=== PATIENT | female | born 1965 | race Caucasian/White ===

== ENCOUNTER 2016-05-06 17:45 | Emergency (ER) | payer BC ==
--- NOTE | 2016-05-06 17:56 | PDOC ---
Rapid Medical Evaluation Chief Complaint: Nausea/Vomiting Time Seen by Provider: 05/06/16 17:50 Medical Evaluation: Allergies Allergy/AdvReac Type Severity Reaction Status Date / Time Penicillins Allergy Severe Difficulty Verified 05/06/16 17:50 Breathing 05/06/16 17:55 I have performed a brief in-person evaluation of this patient. The patient presents with a chief complaint of: epigastric pain, worse after eating, also associated with diaphoresis and nausea Pertinent physical exam findings: + mild epigastric tenderness I have ordered the following:cbc, cmp, ekg, troponin, ruq u/s The patient will proceed to the ED for further evaluation.
[2016-05-06 18:00] VITALS: BP 152/106; PULSE 74; TEMP 98.1; BMI 28.9
[2016-05-06 18:44] LABS: BASOPHIL 0.4 % (0-2.0); EOSINOPHIL 5.7 % (0-4.5); MCH 31.4 pg (25.7-33.7); MCHC 33.6 g/dl (32.0-36.0); MEAN CELL VOLUME 93.6 fl (80-96); MEAN PLT VOLUME 8.8 fl (7.5-11.1); NEUTROPHILS 77.4 % (42.8-82.8); PLATELET COUNT 246 K/MM3 (134-434); RDW 13.1 % (11.6-15.6); WHITE BLOOD COUNT 9.2 K/mm3 (4.0-10.0)
[2016-05-06 19:12] LABS: ALBUMIN 4.2 g/dl (3.4-5.0); ALK PHOS 120 U/L (45-117); ANION GAP 7 (8-16); BILIRUBIN,TOTAL 0.2 mg/dL (0.2-1.0); CALCIUM 9.5 mg/dL (8.5-10.1); CO2 31 mmol/L (21-32); CREATININE 0.8 mg/dL (0.55-1.02); GLUCOSE,RANDOM 114 mg/dL (74-106); SGOT/AST 16 U/L (15-37); SGPT/ALT 21 U/L (12-78); TOT PROT 7.3 g/dl (6.4-8.2)
[2016-05-06 19:14] LABS: TROPONIN I < 0.02 ng/ml (0.00-0.05)
--- NOTE | 2016-05-06 20:21 | PDOC ---
History of Present Illness - General Chief Complaint: Pain, Acute Stated Complaint: PCP SENT/STOMACH PAIN Time Seen by Provider: 05/06/16 17:50 History Source: Patient Exam Limitations: No Limitations - History of Present Illness Travel History: No Timing/Duration: reports: intermittent Quality: reports: mild Abdominal Pain Onset Location: reports: epigastric Pain Radiation: reports: no radiation Past History - Travel Traveled outside of the country in the last 30 days: No Close contact w/someone who was outside of country & ill: No - Past Medical History Allergies/Adverse Reactions: Allergies Allergy/AdvReac Type Severity Reaction Status Date / Time Penicillins Allergy Severe Difficulty Verified 05/06/16 17:50 Breathing Home Medications: Ambulatory Orders No Home Medications 10/29/11 Ibuprofen [Motrin] 600 mg PO Q6H PRN #0 tablet 11/04/11 Anemia: No Asthma: No Cancer: No Cardiac Disorders: No CVA: No COPD: No CHF: No Dementia: No Diabetes: No GI Disorders: No Disorders: Yes (uterine fibroid) HTN: No Hypercholesterolemia: No Liver Disease: No Seizures: No Thyroid Disease: No - Surgical History Abdominal Surgery: No Appendectomy: No Cardiac Surgery: No Cholecystectomy: No Lung Surgery: No Neurologic Surgery: No Orthopedic Surgery: No - Psycho/Social/Smoking Cessation Hx Anxiety: No Suicidal Ideation: No Smoking Status: No Smoking History: Former smoker Years of Tobacco Use: 25 Have you smoked in the past 12 months: No Number of Cigarettes Smoked Daily: 0 Information on smoking cessation initiated: No Hx Alcohol Use: Yes (SOCIALLY) Drug/Substance Use Hx: No Substance Use Type: Alcohol Hx Substance Use Treatment: No Abd/GI Specific PMHX - Complaint Specific PMHX Gall Bladder Disease: No Review of Systems - Review of Systems Able to Perform ROS?: Yes Comments:: 05/06/16 20:20 CONSTITUTIONAL: Absent: fever, chills, diaphoresis, generalized weakness, malaise, loss of appetite HEENT: Absent: rhinorrhea, nasal congestion, throat pain, throat swelling, difficulty swallowing, mouth swelling, ear pain, eye pain, visual Changes CARDIOVASCULAR: Absent: chest pain, loss of consciousness, palpitations, irregular heart rate, peripheral edema RESPIRATORY: Absent: cough, shortness of breath, dyspnea with exertion, orthopnea, wheezing, stridor, hemoptysis GASTROINTESTINAL: Epigastric pain Absent: abdominal distension, nausea, vomiting, diarrhea, constipation, melena , hematochezia GENITOURINARY: Absent: dysuria, frequency, urgency, hesitancy, hematuria, flank pain, genital pain MUSCULOSKELETAL: Absent: myalgia, arthralgia, joint swelling SKIN: Absent: rash, itching, pallor HEMATOLOGIC/IMMUNOLOGIC: Absent: easy bleeding, easy bruising, lymphadenopathy, frequent infections ENDOCRINE: Absent: unexplained weight gain, unexplained weight loss, heat intolerance, cold intolerance NEUROLOGIC: Absent: headache, focal weakness or paresthesias, dizziness, unsteady gait, seizure, mental status changes, bladder or bowel incontinence PSYCHIATRIC: Absent: anxiety, depression, suicidal or homicidal ideation, hallucinations. Is the patient limited [place] proficient: No *Physical Exam - Vital Signs Last Vital Signs Temp Pulse Resp BP Pulse Ox 98.1 F 74 19 152/106 98 05/06/16 17:51 05/06/16 17:51 05/06/16 17:51 05/06/16 17:51 05/06/16 17:51 - Physical Exam Comments: 05/06/16 20:21 GENERAL: Well developed, well nourished. Awake and alert. No acute distress. HEENT: Normocephalic, atraumatic. PERRLA, EOMI. No conjunctival pallor. Sclera are non- icteric. Moist mucous membranes. Oropharynx is clear. NECK: Supple. Full ROM. No JVD. Carotid pulses 2+ and symmetric, without bruits. No thyromegaly. No lymphadenopathy. CARDIOVASCULAR: Regular rate and rhythm. No murmurs, rubs, or gallops. Distal pulses are 2+ and symmetric. PULMONARY: No evidence of respiratory distress. Lungs clear to auscultation bilaterally. No wheezing, rales or rhonchi. ABDOMINAL: Soft. Non-tender. Non-distended. No rebound or guarding. No organomegaly. Normoactive bowel sounds. MUSCULOSKELETAL Normal range of motion at all joints. No bony deformities or tenderness. No CVA tenderness. EXTREMITIES: No cyanosis. No clubbing. No edema. No calf tenderness. SKIN: Warm and dry. Normal capillary refill. No rashes. No jaundice. NEUROLOGICAL: Alert, awake, appropriate. Cranial nerves 2-12 intact. No deficits to light touch and temperature in face, upper extremities and lower extremities. No motor deficits in the in face, upper extremities and lower extremities. Normoreflexic in the upper and lower extremities. Normal speech. Toes are down- going bilaterally. Gait is normal without ataxia. PSYCHIATRIC: Cooperative. Good eye contact. Appropriate mood and affect. ED Treatment Course - LABORATORY CBC & Chemistry Diagram: 05/06/16 18:17 03 18:17 - ADDITIONAL ORDERS Additional order review: Laboratory Results 05/06/16 18:17 Sodium 141 Potassium 4.3 Chloride 103 Carbon Dioxide 31 Anion Gap 7 L BUN 18 D Creatinine 0.8 Creat Clearance w eGFR > 60 Random Glucose 114 H D Calcium 9.5 Total Bilirubin 0.2 AST 16 D ALT 21 Alkaline Phosphatase 120 H D Creatine Kinase 66 Troponin I < 0.02 Total Protein 7.3 Albumin 4.2 05/06/16 18:17 RBC 4.17 MCV 93.6 MCHC 33.6 RDW 13.1 D MPV 8.8 D Neutrophils % 77.4 Lymphocytes % 12.6 D Monocytes % 3.9 Eosinophils % 5.7 H D Basophils % 0.4 Progress Note - Progress Note Progress Note: 50-year-old female presents to the emergency department with no abdominal pains today but was complaining of epigastric discomfort yesterday. Pain is described as 10/10 nonradiating intermittent discomfort that lasts for ~30 minutes after eating for the past 10 days but pain free today. The pain is alleviated on its own after one hour. Patient denies nausea/vomiting, fever/chills, chest pain, shortness of breath, flank pains, urinary symptoms: Frequency/urgency/hesitancy , hematuria. Patient was seen by her PMD this evening and was sent to the emergency department. PMD [phone] Dr. Mcdaniel 2023hrs: I spoke to the patient's PMD (Dr. Mcdaniel) and informed him that the ultrasound shows no gallstones but did show hepatomegaly. Negative cardiac enzymes and the patient is pain-free while in the emergency department. Patient' s PMD requests that I advise the patient to take Prilosec 20 mg twice a day and Maalox and follow back up with him in his office. *DC/Admit/Observation/Transfer Diagnosis at time of Disposition: Epigastric pain - Discharge Dispostion Disposition: HOME Condition at time of disposition: Stable Admit: No - Referrals Referrals: Evgeny Mcdaniel MD [Primary Care Provider] - Isaac Chaves MD [Staff Physician] - - Patient Instructions Printed Discharge Instructions: DI for Epigastric Pain Additional Instructions: As per your doctor, Dr. Mcdaniel, urinary to take Prilosec 20 mg twice a day and Maalox daily. Follow back up with your physician. As per our conversation, ultrasound does not show any gallstones but it does show an enlarged liver. He should follow-up with a biofuels engineering manager. I have listed a biofuels engineering manager on your discharge sheet.
[2016-05-06] MEDS ORDERED: RANITIDINE HCL 150 MG TABLET (FP) PO ONE (20:22)
[2016-05-06] MEDS ORDERED: MAG HYDROX/AL HYDROX/SIMETH 30 ML UNIT-DOSE CUP PO ONE (20:22)
[2016-05-06] MEDS ORDERED: MAG HYDROX/AL HYDROX/SIMETH 30 ML UNIT-DOSE CUP ONE (20:25)
[2016-05-06] MEDS ORDERED: RANITIDINE HCL 150 MG TABLET (FP) ONE ×2 (20:25→20:28)
--- NOTE | 2016-05-06 20:36 | PDOC ---
*Physical Exam - Vital Signs Last Vital Signs Temp Pulse Resp BP Pulse Ox 98.1 F 74 19 152/106 98 05/06/16 17:51 05/06/16 17:51 05/06/16 17:51 05/06/16 17:51 05/06/16 17:51 ED Treatment Course - LABORATORY CBC & Chemistry Diagram: 05/06/16 18:17 05/06/16 18:17 - ADDITIONAL ORDERS Additional order review: Laboratory Results 05/06/16 18:17 Sodium 141 Potassium 4.3 Chloride 103 Carbon Dioxide 31 Anion Gap 7 L BUN 18 D Creatinine 0.8 Creat Clearance w eGFR > 60 Random Glucose 114 H D Calcium 9.5 Total Bilirubin 0.2 AST 16 D ALT 21 Alkaline Phosphatase 120 H D Creatine Kinase 66 Troponin I < 0.02 Total Protein 7.3 Albumin 4.2 05/06/16 18:17 RBC 4.17 MCV 93.6 MCHC 33.6 RDW 13.1 D MPV 8.8 D Neutrophils % 77.4 Lymphocytes % 12.6 D Monocytes % 3.9 Eosinophils % 5.7 H D Basophils % 0.4 - Medications Given in the ED: ED Medications Discontinued Medications Generic Name Dose Route Start Last Admin Trade Name Freq PRN Reason Stop Dose Admin Al Hydroxide/Mg Hydroxide 30 ml 05/06/16 20:22 05/06/16 20:29 Mylanta Oral Suspension - PO 05/06/16 20:23 30 ml ONCE ONE Administration Ranitidine HCl 300 mg 05/06/16 20:22 05/06/16 20:30 Zantac - PO 05/06/16 20:23 300 mg ONCE ONE Administration Medical Decision Making - Medical Decision Making 05/06/16 20:36 Pt seen by the Advanced Practice Provider under my direct supervision Ancillary studies reviewed I agree with plan as outlined by the Advanced Practice Provider ANDREAS Winter *DC/Admit/Observation/Transfer Diagnosis at time of Disposition: Epigastric abdominal pain - Discharge Dispostion Disposition: HOME Condition at time of disposition: Stable - Referrals Referrals: Evgeny Mcdaniel MD [Primary Care Provider] - Isaac Chaves MD [Staff Physician] - - Patient Instructions Printed Discharge Instructions: DI for Epigastric Pain Additional Instructions: As per your doctor, Dr. Mcdaniel, urinary to take Prilosec 20 mg twice a day and Maalox daily. Follow back up with your physician. As per our conversation, ultrasound does not show any gallstones but it does show an enlarged liver. He should follow-up with a inserter promotional item. I have listed a inserter promotional item on your discharge sheet. - Post Discharge Activity
--- NOTE | 2016-05-07 09:57 | EKG ---
Test Reason : Blood Pressure : / mmHG Vent. Rate : 072 BPM Atrial Rate : 072 BPM P-R Int : 184 ms QRS Dur : 090 ms QT Int : 414 ms P-R-T Axes : 055 063 048 degrees QTc Int : 453 ms NORMAL SINUS RHYTHM NORMAL ECG NO PREVIOUS ECGS AVAILABLE Confirmed by ORA COVINGTON MD ([id number]) on 05/07/2016 9:57:40 AM Referred By: Confirmed By:ORA COVINGTON MD
== END 2016-05-06 20:54 | disposition home or self-care (01) ==
LOC: JER 17:45
DX: R10.13 Epigastric pain (principal)
CPT/HCPCS: 36415; 76705-TC; 80053; 82550; 84484; 85025; 93005; 93010; 99281-25

== ENCOUNTER 2017-01-27 22:18 | Emergency (ER) | payer BC ==
[2017-01-27 22:34] VITALS: TEMP 97.5; BMI 29.2
[2017-01-28] MEDS ORDERED: ASPIRIN 81 MG CHEWABLE TABLETS PO ONE (00:34)
--- NOTE | 2017-01-28 00:35 | PDOC ---
History of Present Illness - General Chief Complaint: Chest Pain Stated Complaint: CHEST PAIN Time Seen by Provider: 01/28/17 00:22 History Source: Patient - History of Present Illness Initial Comments: 01/28/17 03:21 51-year-old female complaining of left-sided chest pain that is worse with breathing for 1 day. Patient reports unable to lay flat since chest pain started. Denies recent travel, OCP use leg swelling Past History - Past Medical History Allergies/Adverse Reactions: Allergies Allergy/AdvReac Type Severity Reaction Status Date / Time Penicillins Allergy Severe Difficulty Verified 01/27/17 23:35 Breathing Home Medications: Ambulatory Orders No Home Medications 10/29/11 Anemia: No Asthma: No Cancer: No Cardiac Disorders: No CVA: No COPD: No CHF: No Dementia: No Diabetes: No GI Disorders: No Disorders: Yes (uterine fibroid) HTN: No Hypercholesterolemia: No Liver Disease: No Seizures: No Thyroid Disease: No - Surgical History Abdominal Surgery: No Appendectomy: No Cardiac Surgery: No Cholecystectomy: No Lung Surgery: No Neurologic Surgery: No Orthopedic Surgery: No - Suicide/Smoking/Psychosocial Hx Smoking Status: No Smoking History: Former smoker Years of Tobacco Use: 25 Have you smoked in the past 12 months: No Number of Cigarettes Smoked Daily: 0 If you are a former smoker, when did you quit?: @2006 Information on smoking cessation initiated: No Hx Alcohol Use: No Drug/Substance Use Hx: No Substance Use Type: Alcohol Hx Substance Use Treatment: No Cardiac Specific PMH - Complaint Specific PMHX Pacemaker: No Review of Systems - Review of Systems Able to Perform ROS?: Yes Is the patient limited [place] proficient: No Constitutional: No: Symptoms Reported, See HPI, Chills, Diaphoresis, Fever, Loss of Appetite, Malaise, Night Sweats, Weakness, Weight Stable, Unintentional Wgt. Loss, Unexplained wgt Loss, Other Respiratory: No: Symptoms reported, See HPI, Cough, Orthopnea, Shortness of Breath, SOB with Exertion, SOB at Rest, Stridor, Wheezing, Productive cough, Hemoptysis, Other Cardiac (ROS): Yes: Chest Pain (pleurisy). No: Symptoms Reported, See HPI, Edema, Irregular Heart Rate, Lightheadedness, Palpitations, Syncope, Chest Tightness, Other *Physical Exam - Vital Signs Last Vital Signs Temp Pulse Resp BP Pulse Ox 97.5 F L 75 17 157/105 99 01/27/17 22:31 01/27/17 22:31 01/27/17 22:31 01/27/17 22:31 01/27/17 22:31 - Physical Exam General Appearance: Yes: Appropriately Dressed Respiratory/Chest: positive: Lungs Clear, Normal Breath Sounds Cardiovascular: positive: Regular Rhythm, Regular Rate Gastrointestinal/Abdominal: positive: Normal Bowel Sounds, Soft Extremity: positive: Normal Capillary Refill Integumentary: positive: Dry, Warm Neurologic: positive: Alert, Normal Mood/Affect ED Treatment Course - LABORATORY CBC & Chemistry Diagram: 01/28/17 00:45 01/28/17 00:45 - ADDITIONAL ORDERS Additional order review: Laboratory Results 01/28/17 01/28/17 01/28/17 03:37 00:45 00:45 PT with INR INR D-Dimer Sodium 139 Potassium 3.9 Chloride 106 Carbon Dioxide 26 Anion Gap 7 L BUN 14 D Creatinine 0.7 Creat Clearance w eGFR > 60 Random Glucose 105 Calcium 8.6 Magnesium 2.2 Total Bilirubin 0.2 AST 15 ALT 25 Alkaline Phosphatase 124 H Creatine Kinase 100 89 Troponin I < 0.02 < 0.02 Total Protein 7.4 Albumin 3.7 Serum , Qual Negative 01/28/17 00:45 PT with INR 9.40 L INR 0.83 L D-Dimer < 200 Sodium Potassium Chloride Carbon Dioxide Anion Gap BUN Creatinine Creat Clearance w eGFR Random Glucose Calcium Magnesium Total Bilirubin AST ALT Alkaline Phosphatase Creatine Kinase Troponin I Total Protein Albumin Serum , Qual 01/28/17 00:45 RBC 4.39 MCV 92.7 MCHC 33.6 RDW 13.1 MPV 9.0 Neutrophils % 55.9 D Lymphocytes % 34.1 D Monocytes % 6.9 Eosinophils % 2.4 Basophils % 0.7 - RADIOLOGY Radiology Studies Ordered: Category Date Time Status CHEST CTA [CT] Stat CT Scan 01/28/17 02:41 Taken CHEST PA & LAT [RAD] Stat Radiology 01/28/17 00:34 Taken - Medications Given in the ED: ED Medications Discontinued Medications Generic Name Dose Route Start Last Admin Trade Name Freq PRN Reason Stop Dose Admin Albuterol Sulfate 1 amp 01/28/17 02:22 01/28/17 03:12 Ventolin 0.083% Nebulizer Soln - NEB 01/28/17 02:23 1 amp ONCE ONE Administration Aspirin 162 mg 01/28/17 00:34 01/28/17 03:11 Asa - PO 01/28/17 00:35 162 mg ONCE ONE Administration Progress Note - Progress Note Progress Note: A: pleuritic chest pain CBC CMP chest xray d-dimer<200 cardiac enzymes patient still symptomatic. will CTA to r/o acute cause CTA chest Medical Decision Making - Medical Decision Making 01/28/17 04:17 CTA: negative for pulmonary embolus, lungs are clear no acute disease *DC/Admit/Observation/Transfer Diagnosis at time of Disposition: Pleuritic chest pain - Discharge Dispostion Disposition: HOME - Referrals Referrals: Evgeny Mcdaniel MD [Primary Care Provider] - - Patient Instructions Printed Discharge Instructions: DI for Chest Pain Additional Instructions: follow up with your doctor as soon as possible. return to the ER if symptoms worsen. - Post Discharge Activity
[2017-01-28 00:57] LABS: BASOPHIL 0.7 % (0-2.0); EOSINOPHIL 2.4 % (0-4.5); MCH 31.2 pg (25.7-33.7); MCHC 33.6 g/dl (32.0-36.0); MEAN CELL VOLUME 92.7 fl (80-96); NEUTROPHILS 55.9 % (42.8-82.8); PLATELET COUNT 196 K/MM3 (134-434); RDW 13.1 % (11.6-15.6)
[2017-01-28 01:25] LABS: ALBUMIN 3.7 g/dl (3.4-5.0); ANION GAP 7 (8-16); CALCIUM 8.6 mg/dL (8.5-10.1); CO2 26 mmol/L (21-32); CPK 89 IU/L (26-192); CREATININE 0.7 mg/dL (0.55-1.02); GLUCOSE,RANDOM 105 mg/dL (74-106); MAGNESIUM 2.2 mg/dL (1.8-2.4); SGOT/AST 15 U/L (15-37); SGPT/ALT 25 U/L (12-78); TOT PROT 7.4 g/dl (6.4-8.2)
[2017-01-28 01:29] LABS: ALK PHOS 124 U/L (45-117); BILIRUBIN,TOTAL 0.2 mg/dL (0.2-1.0); TROPONIN I < 0.02 ng/ml (0.00-0.05)
[2017-01-28 01:40] LABS: INR 0.83 (0.82-1.09)
[2017-01-28 01:43] LABS: D-DIMER < 200 ng/ml (<200-235)
--- NOTE | 2017-01-28 02:00 | PDOC ---
*Physical Exam - Vital Signs Last Vital Signs Temp Pulse Resp BP Pulse Ox 97.5 F L 75 17 157/105 99 01/27/17 22:31 01/27/17 22:31 01/27/17 22:31 01/27/17 22:31 01/27/17 22:31 ED Treatment Course - LABORATORY CBC & Chemistry Diagram: 01/28/17 00:45 01/28/17 00:45 - ADDITIONAL ORDERS Additional order review: Laboratory Results 01/28/17 01/28/17 01/28/17 00:45 00:45 00:45 PT with INR 9.40 L INR 0.83 L D-Dimer < 200 Sodium 139 Potassium 3.9 Chloride 106 Carbon Dioxide 26 Anion Gap 7 L BUN 14 D Creatinine 0.7 Creat Clearance w eGFR > 60 Random Glucose 105 Calcium 8.6 Magnesium 2.2 Total Bilirubin 0.2 AST 15 ALT 25 Alkaline Phosphatase 124 H Creatine Kinase 89 Troponin I < 0.02 Total Protein 7.4 Albumin 3.7 Serum , Qual Negative 01/28/17 00:45 RBC 4.39 MCV 92.7 MCHC 33.6 RDW 13.1 MPV 9.0 Neutrophils % 55.9 D Lymphocytes % 34.1 D Monocytes % 6.9 Eosinophils % 2.4 Basophils % 0.7 Medical Decision Making - Medical Decision Making 01/28/17 02:00 agree with care from HENNA allison *DC/Admit/Observation/Transfer - Referrals Referrals: Evgeny Mcdaniel MD [Primary Care Provider] - - Patient Instructions - Post Discharge Activity
[2017-01-28] MEDS ORDERED: ALBUTEROL SO4 0.083% IH SOL 2.5 MG/3 ML VIAL.NEB. NEB ONE ×2 (02:22→03:07)
[2017-01-28] MEDS ORDERED: ASPIRIN 81 MG CHEWABLE TABLETS ONE (03:07)
[2017-01-28 04:12] LABS: TROPONIN I < 0.02 ng/ml (0.00-0.05)
[2017-01-28 04:14] LABS: CPK 100 IU/L (26-192)
[2017-01-28 04:28] VITALS: BP 143/91; PULSE 70
--- NOTE | 2017-01-28 10:04 | EKG ---
Test Reason : Blood Pressure : / mmHG Vent. Rate : 071 BPM Atrial Rate : 071 BPM P-R Int : 166 ms QRS Dur : 090 ms QT Int : 408 ms P-R-T Axes : 041 054 049 degrees QTc Int : 443 ms NORMAL SINUS RHYTHM NORMAL ECG WHEN COMPARED WITH ECG OF 06-MAY-2016 19:59, NO SIGNIFICANT CHANGE WAS FOUND Confirmed by ORA COVINGTON MD ([id number]) on 01/28/2017 10:04:16 AM Referred By: Confirmed By:ORA COVINGTON MD
== END 2017-01-28 04:36 | disposition home or self-care (01) ==
LOC: JER 22:18
PROC: 3E0F7GC Introduction of Other Therapeutic Substance into Respiratory Tract, Via Natural or Artificial Opening (ICD-10-PCS; principal; 2017-01-27)
DX: R07.81 Pleurodynia (principal); Z87.891 Personal history of nicotine dependence
CPT/HCPCS: 36415; 71020-TC; 71275-TC; 80053; 82550; 83735; 84484; 84703; 85025; 85379; 85610; 93005; 93010; 99284-25

== ENCOUNTER 2018-09-27 04:49 | Day surgery (SDC) | payer BC ==
[2018-09-25 13:53] VITALS: BMI 31.6
[2018-09-27] MEDS ORDERED: MIDAZOLAM HCL 2 MG/2 ML SINGLE DOSE VIAL ONE (07:18)
[2018-09-27] MEDS ORDERED: PROPOFOL 20 ML ONE ×2 (07:19→08:10)
[2018-09-27] MEDS ORDERED: KETOROLAC TROMETHAMINE 30 MG/1 ML VIAL ONE (07:23)
[2018-09-27] MEDS ORDERED: SUCCINYLCHOLINE CHLORIDE 200 MG/10 ML SYRINGE ONE (07:24)
[2018-09-27] MEDS ORDERED: BUPIVACAINE HCL/PF 0.5% (5MG/ML) 10 ML VIAL ONE (07:26)
[2018-09-27] MEDS ORDERED: LIDOCAINE HCL 1% EPINEPHRINE 1:200,000 30 ML VIAL (PF) ONE (07:36)
[2018-09-27] MEDS ORDERED: ONDANSETRON 4 MG/2 ML VIAL IVPUSH PRN (07:51)
[2018-09-27] MEDS ORDERED: oxyCODONE HCL 5 MG TABLET PO PRN ×2 (07:51)
--- NOTE | 2018-09-27 07:57 | HP ---
[facility] - Chief Complaint Chief Complaint: LEFT KNEE PAIN History Source: Patient - Past Medical History Allergies/Adverse Reactions: Allergies Allergy/AdvReac Type Severity Reaction Status Date / Time Penicillins Allergy Severe Difficulty Verified 09/27/18 06:40 Breathing ...LMP: 09/13/11 - Current Medications Current Medications: Home Medications Medication Instructions Recorded Tylenol Muscle Ache & Pain 1 tab PO PRN PRN 09/25/18 [facility] Physical Exam - Physical Examination Vital Signs: Vital Signs Period Temp Pulse Resp BP Sys/Bear Pulse Ox Last 24 Hr 98.2 F 70 16 143/83 99 Extremities: Other (+ LEFT LATERAL JOINT TENDERNESS) [facility] Impression/Plan - Impression/Plan Impression: INTERNAL DERANGEMENT LEFT KNEE Operative Procedure: ARTHROSCOIPY LEFT KNEE Date to be Performed: 09/27/18
[2018-09-27] MEDS ORDERED: LACTATED RINGERS SOLUTION 1,000 ML IV SCH (08:00)
[2018-09-27] MEDS ORDERED: ACETAMINOPHEN 1000 MG/100 ML VIAL (NON FORMULARY) IVPB ONE (08:54)
--- NOTE | 2018-09-27 08:58 | OP ---
Operative Note - Note: Operative Date: 09/27/18 Pre-Operative Diagnosis: INTERNAL DERANGEMENT LEFT KNEE Operation: ARTHROSCOPY LEFT KNEE WITH PARTIAL LATERAL MENISCECTOMY Post-Operative Diagnosis: Same as Pre-op Surgeon: Kalyan Gan Adjunct Philosophy Faculty: Mark Fernandez Anesthesia: General Operative Report Dictated: Yes
[2018-09-27] MEDS ORDERED: ACETAMINOPHEN INJECTION 100 ML IVPB ONE (09:05)
--- NOTE | 2018-09-27 10:25 | OP ---
DATE OF OPERATION: 09/27/2018 PREOPERATIVE DIAGNOSIS: Internal derangement, left knee. POSTOPERATIVE DIAGNOSIS: Internal derangement, left knee. PROCEDURE: Arthroscopy, left knee, partial lateral meniscectomy. SURGICAL ATTENDING: Kalyan Gan MD GLOVE CUFFER: Mark Fernandez MD ANESTHESIA: General with LMA. CLOSURE: 4-0 nylon. COMPLICATIONS: None. CONDITION: To recovery room in stable condition. DESCRIPTION OF OPERATIVE PROCEDURE: Patient was taken to the operating room on September 27, 2018. General anesthesia with LMA was administered by the anesthesiologist. The left lower extremity was prepped and draped in the usual sterile fashion. The medial and lateral infrapatellar portal sites were infiltrated with 1% Xylocaine with epinephrine. Both portals were then made with a 15 blade followed by blunt trocar. The trocar was placed in the lateral infrapatellar portal and up the suprapatellar pouch. The knee was then inflated with cocktail, 10 mL of 1% Xylocaine, 10 mL of 0.5% Marcaine, and 20 mL for arthroscopic saline. After allowing the anesthetic to work in the knee, the procedure was performed. The medial and lateral gutters were visualized to be intact. The undersurface of the patella and trochlea were visualized to be intact. With valgus stress on the knee, the medial compartment was entered. The medial meniscus was visualized and probed and found to be intact. The medial femoral condyle was run and found to be intact, as was the medial tibial plateau. At 90 degrees of the ACL was visualized and probed and found to be intact. In the figure 4 position, lateral compartment was entered. Lateral meniscus was found to have a complex flap tear of its mid portion. This was debrided back to smooth stable meniscal tissues both anterior and posterior using an arthroscopic shaver and biters. The lateral femoral condyle was run and found to be basically intact, as was the lateral tibial plateau. The knee was irrigated with copious amounts of irrigation. The portals were closed using 4-0 nylon. Prior to puling the trocar, 20 mL of 0.5% Marcaine was infused using postoperative analgesia, and sterile pressure dressing was placed over the knee. Patient awakened from anesthesia and transferred to recovery in stable condition. No complications. Estimated blood loss negligible. Angel HERNANDEZ/[id number]
[2018-09-27 12:42] VITALS: BP 130/80; PULSE 68; TEMP 98
--- NOTE | 2018-09-28 16:29 | PATH ---
Surgical Pathology Report Patient Name: LUCI BOB [facility]. Rec. #: [id number] /Age/Gender: 1965 (Age: 53) / F Account: [id number] Location: [facility] SURGICAL Taken: 09/27/2018 Received: 09/27/2018 Reported: 09/28/2018 Physicians: Mark Fernandez M.D. Specimen(s) Received LEFT KNEE SHAVINGS Clinical History Left knee pain Final Diagnosis KNEE SHAVINGS, LEFT, ARTHROSCOPY: FRAGMENTS OF CARTILAGE, DENSE FIBROCONNECTIVE TISSUE, ADIPOSE TISSUE, AND SYNOVIUM. Electronically Signed Irma Tolliver M.D. Gross Description Received in formalin, labeled "left knee shavings," is a 4.0 x 3.0 x 0.4 cm. aggregate of mena-yellow soft tissue fragments. A sales representative facility services portion is submitted in one cassette. /09/27/201809/27/2018
== END 2018-09-27 12:30 | disposition home or self-care (01) ==
LOC: JASU-SURG 04:49
PROVIDERS: ATTEND Orthopaedic Surgery
PROC: 0SBD4ZZ Excision of Left Knee Joint, Percutaneous Endoscopic Approach (ICD-10-PCS; principal; 2018-09-27 08:00)
DX: M23.201 Derangement of unspecified lateral meniscus due to old tear or injury, left knee (principal)
CPT/HCPCS: 88304-TC; 94760; J0131